=== PATIENT | male | born 1975 | race Caucasian/White ===

== ENCOUNTER 2016-09-12 16:44 | Emergency (ER) | payer MEDICAID ==
[~2016-09-12] VITALS: Ht 177.8 cm; Wt 134.3 kg
[2016-09-12 17:21] VITALS: BP 191/121
== END 2016-09-12 17:21 | disposition home or self-care (01) ==
LOC: ER 16:46
DX: S46.211A Strain of muscle, fascia and tendon of other parts of biceps, right arm, initial encounter (principal); N20.0 Calculus of kidney; F17.200 Nicotine dependence, unspecified, uncomplicated; X50.0XXA Overexertion from strenuous movement or load, initial encounter; Y93.89 Activity, other specified; Y92.89 Other specified places as the place of occurrence of the external cause; Y99.8 Other external cause status
CPT/HCPCS: 73080; 99284; A4606; Z7610